=== PATIENT | female | born 1940 | race Caucasian/White ===

== ENCOUNTER → 2017-12-26 | Outpatient (CLI) | payer OTHER | END | disposition home or self-care (01) | LOC: CFH 10:17 | PROVIDERS: ATTEND Family Medicine | DX: M47.812 Spondylosis without myelopathy or radiculopathy, cervical region (principal); M85.88 Other specified disorders of bone density and structure, other site | CPT/HCPCS: 72040 ==

== ENCOUNTER 2018-04-05 01:41 | Emergency (ER) | payer OTHER ==
[~2018-04-05] VITALS: Ht 162.6 cm; Wt 60.1 kg
[2018-04-05] MEDS ORDERED: KETOROLAC 30 MG/1 ML ONE (02:19)
[2018-04-05] MEDS ORDERED: DIAZEPAM 5 MG TABLET ONE (02:20)
[2018-04-05] MEDS ORDERED: BUPIVACAINE 0.25% ONE (02:20)
[2018-04-05] MEDS ORDERED: TRIAMCINOLONE ACETONIDE 40 MG/ML, 1ML IM ONE (02:30)
[2018-04-05] MEDS ORDERED: BUPIVACAINE/PF 0.5% INFIL ONE (02:30)
[2018-04-05] MEDS ORDERED: KETOROLAC 30 MG/1 ML IM ONE (02:30)
[2018-04-05] MEDS ORDERED: DIAZEPAM 5 MG TABLET PO ONE (02:30)
[2018-04-05 02:41] LABS: BASOPHILS # (AUTO) 0.02 x10^3/uL (0-0.1); BASOPHILS % (AUTO) 0 % (0-1); EOSINOPHILS % (AUTO) 2 % (1-7); LYMPHOCYTES # (AUTO) 1.45 x10^3/uL (1-3.4); LYMPHOCYTES % (AUTO) 12 % (22-44); MD NO; MEAN CORPUSCULAR HGB CONC 33.2 g/dL (32.4-35.8); MEAN CORPUSCULAR VOLUME 81.4 fL (80-100); MONOCYTES % (AUTO) 11 % (2-9); NEUTROPHILS # (AUTO) 9.31 x10^3/uL (1.8-6.8); NEUTROPHILS % (AUTO) 76 % (42-75); PLATELET COUNT 288 x10^3/uL (130-400); RED BLOOD COUNT 4.93 x10^6/uL (3.82-5.3); RED CELL DISTRIBUTION WIDTH 14.5 % (9.6-15.2)
[2018-04-05 02:51] LABS: ALBUMIN 3.4 g/dL (3.4-5.0); ANION GAP 8 mmol/L (5-15); CALCIUM 9.2 mg/dL (8.5-10.1); CHLORIDE 105 mmol/L (98-107); CREATININE 0.84 mg/dL (0.55-1.02)
[2018-04-05 02:55] LABS: TROPONIN I < 0.015 ng/mL (0.000-0.045)
[2018-04-05 04:21] VITALS: BP 124/76
== END 2018-04-05 04:23 | disposition home or self-care (01) ==
LOC: ED 03:28
DX: S13.9XXA Sprain of joints and ligaments of unspecified parts of neck, initial encounter (principal); G24.3 Spasmodic torticollis; I10 Essential (primary) hypertension; M54.2 Cervicalgia; Z90.710 Acquired absence of both cervix and uterus; Z90.49 Acquired absence of other specified parts of digestive tract; Z87.891 Personal history of nicotine dependence; R93.8 Abnormal findings on diagnostic imaging of other specified body structures; X58.XXXA Exposure to other specified factors, initial encounter; Y93.89 Activity, other specified; Y99.8 Other external cause status; Y92.89 Other specified places as the place of occurrence of the external cause
CPT/HCPCS: 20552; 36415; 71045; 80048; 82040; 84484; 85025; 93005; 96372; 99285; J1885; J3301; J3490

== ENCOUNTER → 2018-06-05 | Outpatient (CLI) | payer OTHER | END | disposition home or self-care (01) | LOC: CFH 10:41 | PROVIDERS: ATTEND Family Medicine | DX: M79.672 Pain in left foot (principal); M19.072 Primary osteoarthritis, left ankle and foot ==